=== PATIENT | female | born 1945 | race Caucasian/White ===

== ENCOUNTER 2018-05-12 08:55 | Emergency (ER) | payer OTHER ==
[2018-05-12] MEDS ORDERED: KETOROLAC 30 MG/ML INJ ONE (09:33)
[2018-05-12 09:42] LABS: Absolute Monocytes 0.4 K/uL (0.1-1.3); Absolute Neutrophil 3.5 K/uL (1.8-8.0); Basophils % 0.6 % (0-1.3); Eosinophils % 2.5 % (0-4.4); Hematocrit 41.8 % (36.0-45.0); Lymphocytes % 20.6 % (15.3-44.8); MCH 30.5 pg (27.0-35.0); MCV 89.3 fL (80-100); MPV 8.9 fL (7.6-11.3); Monocytes % 7.4 % (3.3-12.3); RBC Red Blood Cell Count 4.68 M/uL (3.86-4.86)
[2018-05-12 09:57] LABS: Potassium 3.9 mEq/L (3.6-5.0)
[2018-05-12 10:04] LABS: Albumin 4.5 g/dL (3.2-5.5); Bilirubin Direct 0.1 mg/dL (0-0.2); Bilirubin Total 0.9 mg/dL (0.3-1.2); Protein, Total 7.3 g/dL (6.0-8.3)
--- NOTE | 2018-05-12 10:07 | RAD REPORT ---
EXAM DESCRIPTION: CT - Stone Protocol - 05/12/2018 9:37 am CLINICAL HISTORY: Abdominal pain, right flank pain, patient detailed history of right lower quadrant pain, patient provided history of kidney tumors and prior diverticulitis COMPARISON: CT study May 2015 TECHNIQUE: Axial 5 mm thick images were obtained without oral or IV contrast. The [id number] span s the entirety of the system partially obscuring uppermost abdomen and lung bases. Sagittal and co osorio reformatted images were generated and reviewed. All CT scans are performed using dose optimization technique as appropriate and may include automated exposure control or mA/KV adjustment according to patient size.This is this is an outpatient FINDINGS: No acute hydronephrosis present. Fullness of the right renal pelvis is similar to 2015. No ureteral dilatation. Abdomen and pelvic calcifications are present all believed to be outside of the system. No nonobstructing calculi in either kidney. Both kidneys show lobulated contour with area s of cortical thinning noted on the left. Fatty mass lower pole left kidney has not clearly changed f rom 2015. Approximately 10 millimeter area of nodularity adjacent to the lower pole left kidney also without clear change. Fatty mass posterior mid upper left kidney also unchanged from prior imaging. S mall fatty mass lateral right mid kidney shows no change. No new or enlarging renal mass identifiable . Isodense masses and pyelonephritis are not excluded. Partially filled urinary bladder shows no susp icious findings. Uterus and ovaries also without suspicious finding. Imaged portions of the liver, spleen and pancreas show no suspicious findings on non-contrast imaging . Well filled gallbladder shows no acute finding. No biliary tree dilatation. No significant adrenal finding. No acute gastric finding. Gastric jerry are similar to 2015. No acute small bowel finding. There is n o appendicitis. Moderately large stool volume fills but does not dilate the cecum and ascending colon . Moderate stool volume elsewhere in the colon. Diverticulosis is present within the tortuous and red undant sigmoid colon. An acute colon process not seen. No hernia, mass or bulky lymphadenopathy noted. No free air, free fluid or inflammatory stranding. No hematoma or other soft tissue abnormality evident. Advanced disc and bony degenerative changes are present. No acute bone process seen. IMPRESSION: No hydronephrosis, obstructing calculus or acute finding. Both kidneys show lobulated contours and bilateral fatty masses not clearly different from 2015. No a cute bladder finding. Large stool volume fills but does not dilate the cecum and ascending colon. Patient has prominent div erticulosis but no diverticulitis. No acute GI findings seen. No clearly acute finding to explain right-sided back and flank pain symptoms.
[2018-05-12 10:27] LABS: Urine Blood NEGATIVE (NEG); Urine Glucose NEGATIVE (NEG); Urine Protein NEGATIVE (NEG)
--- NOTE | 2018-05-12 10:57 | ER ---
Nurse's Notes [facility] Name: Aniyah Sparks Age: 72 yrs Sex: Female : 1945 Arrival Date: 05/12/2018 Time: 08:58 Bed 5 Private MD: Lior Head H Diagnosis: Abdominal and pelvic pain;Constipation Presentation: 05/12 09:08 Presenting complaint: Patient states: c/o right lower back pain X 10days, has had back iw spasms but then c/o RLQ pain X3-4 days,denies n/v/d, denies urinary symptoms,rates pain 7/10 when lying down,alleviated by standing, pt states she also has tumors on her kidneys that her doctors are monitoring. Transition of care: patient was not received from another setting of care. Onset of symptoms was May 09, 2018. Risk Assessment: Do you want to hurt yourself or someone else? Patient reports no desire to harm self or others. Initial Sepsis Screen: Does the patient meet any 2 criteria? No. Patient's initial sepsis screen is negative. Does the patient have a suspected source of infection? No. Patient's initial sepsis screen is negative. Care prior to arrival: None. 09:08 Method Of Arrival: Ambulatory iw 09:08 Acuity: PERRY 3 iw Historical: - Allergies: 09:18 QUINOLONES; iw - Home Meds: 09:18 levothyroxine 50 mcg tab 1 tab once daily [Active]; iw - PMHx: 09:18 Hypothyroidism; tumors on kidneys; Diverticulitis; iw - PSHx: 09:18 None; iw - Immunization history:: Adult Immunizations up to date. - Social history:: Smoking status: Patient/guardian denies using tobacco. - Ebola Screening: : Patient negative for fever greater than or equal to 101.5 degrees Fahrenheit, and additional compatible Ebola Virus Disease symptoms Patient denies exposure to infectious person Patient denies travel to an Ebola-affected area in the 21 days before illness onset No symptoms or risks identified at this time. Screenin:10 Abuse screen: Denies threats or abuse. Nutritional screening: No deficits noted. aa5 Tuberculosis screening: No symptoms or risk factors identified. Fall Risk None identified. Assessment: 09:06 General: Appears comfortable, Behavior is calm, cooperative. Pain: Complains of pain in aa5 right low back and right lower quadrant Pain does not radiate. Pain currently is 7 out of 10 on a pain scale. Quality of pain is described as Pt states "it feels like a spasm" Pain began back pain 1 1/2 weeks ago and abdominal pain began approximately 4 days ago Is continuous, Aggravated by increased activity, repositioning. Neuro: Level of Consciousness is awake, alert, obeys commands, Oriented to person, place, time, situation. Cardiovascular: Heart tones S1 S2 present Rhythm is regular. Respiratory: Airway is patent Respiratory effort is even, unlabored, Respiratory pattern is regular, symmetrical, Breath sounds are clear bilaterally. GI: Abdomen is flat, non-distended, Bowel sounds present X 4 quads. Abd is soft and non tender X 4 quads. Patient currently denies diarrhea, nausea, vomiting. : Denies burning with urination, urinary frequency. EENT: No signs and/or symptoms were reported regarding the EENT system. Derm: Skin is pink, warm \\T\\ dry. Musculoskeletal: Range of motion: intact in all extremities. 09:44 Reassessment: Pt back from CT scan. aa5 10:00 General: Appears in no apparent distress. comfortable, Behavior is calm, cooperative, hj appropriate for age. Pain: Complains of pain in left low back Pain does not radiate. Pain currently is 4 out of 10 on a pain scale. Quality of pain is described as aching, Pain began Is continuous, Aggravated by increased activity, repositioning. Neuro: Level of Consciousness is awake, alert, obeys commands, Oriented to person, place, time, situation, Appropriate for age. Cardiovascular: Heart tones S1 S2 present. Respiratory: Airway is patent Respiratory effort is even, unlabored, Respiratory pattern is regular, symmetrical, Breath sounds are clear bilaterally. GI: Abdomen is non-distended, Bowel sounds present X 4 quads. Abd is soft and non tender X 4 quads. Patient currently denies diarrhea, nausea, vomiting. : Denies burning with urination, urinary frequency. EENT: No signs and/or symptoms were reported regarding the EENT system. Derm: Skin is intact, Skin is pink, warm \\T\\ dry. Musculoskeletal: Capillary refill < 3 seconds, Range of motion: intact in all extremities. Vital Signs: 09:05 BP 167 / 97; Pulse 74; Resp 16 S; Temp 98.4(O); Pulse Ox 97% on R/A; Weight 57.15 kg; iw Height 5 ft. 6 in. (167.64 cm); Pain 7/10; 10:15 BP 158 / 95; Pulse 75; Resp 18; Pulse Ox 98% on R/A; hj 11:09 BP 148 / 83; Pulse 71; Resp 16 S; Pulse Ox 99% on R/A; Pain 4/10; iw 09:05 Body Mass Index 20.34 (57.15 kg, 167.64 cm) iw ED Course: 08:58 Patient arrived in ED. mr 08:58 Lior Head DO is Private Physician. mr 08:59 Parker Felton MD is Attending Physician. kdr 09:01 Dilma Morgan, RN is Primary Nurse. aa5 09:05 Patient has correct armband on for positive identification. Placed in gown. Bed in low aa5 position. Call light in reach. Side rails up X2. 09:05 Arm band placed on. iw 09:12 Triage completed. iw 09:31 Inserted saline lock: 20 gauge in right antecubital area, using aseptic technique. aa5 ,using aseptic technique. IV inserted by STEPHANIE Mireles. 09:35 Initial lab(s) drawn, by me, sent to lab. jp3 09:[address] via wheelchair. sw 09:37 CT completed. Patient tolerated procedure well. Patient moved back from CT. sw 09:38 CT Stone Protocol In Process Unspecified. EDMS 09:44 No provider procedures requiring assistance completed. aa5 09:57 Matt Langford, LISA is Primary Nurse. hj 10:00 Urine collected: clean catch specimen, clear, kyler colored. jp3 10:55 Lior Head DO is Referral Physician. kdr 11:09 IV discontinued, intact, bleeding controlled, No redness/swelling at site. Pressure iw dressing applied. Administered Medications: 09:33 Drug: TORadol 30 mg Route: IVP; Site: right antecubital; aa5 09:44 Follow up: Response: No adverse reaction hj Outcome: 10:56 Discharge ordered by . kdr 11:09 Discharged to home ambulatory, with family. iw 11:09 Condition: good 11:09 Discharge instructions given to patient, Instructed on discharge instructions, follow up and referral plans. medication usage, Demonstrated understanding of instructions, follow-up care, medications, Prescriptions given X 3. 11:11 Patient left the ED. iw Signatures: Dispatcher [employer] EDMS Parker Felton MD MD kdr Rivera, Maria mr Margarette Cortez, RN RN Dilma Muro RN RN aa5 Destiny Calderon Henry, RN RN hj Pisarski, Jacob jp3 Corrections: (The following items were deleted from the chart) 09:44 09:05 BP 167 / 97; Pulse 74bpm; Resp 16bpm; Spontaneous; Pulse Ox 97% RA; Temp 98.4F iw Oral; aa5
--- NOTE | 2018-05-12 10:57 | EDPHYS ---
Physician Documentation [facility] Name: Aniyah Sparks Age: 72 yrs Sex: Female : 1945 Arrival Date: 05/12/2018 Time: 08:58 Bed 5 Private MD: Lior Head H ED Physician Parker Felton HPI: 05/12 10:21 This 72 yrs old Female presents to ER via Ambulatory with complaints of kdr Abdominal Pain, Back Pain. 10:21 The patient has been c/o an exacerbation of her back pain for the past 10 days and then kdr abdominal pain for the last 3-4 days. She has had chronic back pain but this has been worse. Her abdominal pain is new, intermittent and vague. Onset: The symptoms/episode began/occurred The back pain has been intermittent for some days and the abdominal pain has been the last 3-4 days.. Severity of symptoms: At their worst the symptoms were moderate today, in the emergency department the symptoms have improved mildly. The patient has not experienced similar symptoms in the past. She has had ongoing and intermittent back pain but the abdominal pain is intermittent . The patient has not recently seen a physician. Historical: - Allergies: 09:18 QUINOLONES; iw - Home Meds: 09:18 levothyroxine 50 mcg tab 1 tab once daily [Active]; iw - PMHx: 09:18 Hypothyroidism; tumors on kidneys; Diverticulitis; iw - PSHx: 09:18 None; iw - Immunization history:: Adult Immunizations up to date. - Social history:: Smoking status: Patient/guardian denies using tobacco. - Ebola Screening: : Patient negative for fever greater than or equal to 101.5 degrees Fahrenheit, and additional compatible Ebola Virus Disease symptoms Patient denies exposure to infectious person Patient denies travel to an Ebola-affected area in the 21 days before illness onset No symptoms or risks identified at this time. ROS: 12:10 Constitutional: Negative for fever, chills, and weight loss, Eyes: Negative for injury, kdr pain, redness, and discharge, ENT: Negative for injury, pain, and discharge, Neck: Negative for injury, pain, and swelling, Cardiovascular: Negative for chest pain, palpitations, and edema, Respiratory: Negative for shortness of breath, cough, wheezing, and pleuritic chest pain, : Negative for injury, bleeding, discharge, and swelling, MS/Extremity: Negative for injury and deformity, Skin: Negative for injury, rash, and discoloration, Neuro: Negative for headache, weakness, numbness, tingling, and seizure activity. Psych: Negative for depression, anxiety, suicide ideation, homicidal ideation, and hallucinations, Allergy/Immunology: Negative for hives, rash, and allergies, Endocrine: Negative for neck swelling, polydipsia, polyuria, polyphagia, and marked weight changes, Hematologic/Lymphatic: Negative for swollen nodes, abnormal bleeding, and unusual bruising. 12:10 Abdomen/GI: Positive for abdominal pain, Negative for nausea, vomiting, and diarrhea, abdominal distension, anorexia, black/tarry stool, rectal pain, rectal bleeding. 12:10 Back: Positive for pain at rest, pain with movement, of the right mid back. Exam: 12:10 Constitutional: This is a well developed, well nourished patient who is awake, alert, kdr and in no acute distress. Head/Face: Normocephalic, atraumatic. Eyes: Pupils equal round and reactive to light, extra-ocular motions intact. Lids and lashes normal. Conjunctiva and sclera are non-icteric and not injected. Cornea within normal limits. Periorbital areas with no swelling, redness, or edema. Neck: Trachea midline, no thyromegaly or masses palpated, and no cervical lymphadenopathy. Supple, full range of motion without nuchal rigidity, or vertebral point tenderness. No Meningismus. Chest/axilla: Normal chest wall appearance and motion. Nontender with no deformity. No lesions are appreciated. Cardiovascular: Regular rate and rhythm with a normal S1 and S2. No gallops, murmurs, or rubs. Normal PMI, no JVD. No pulse deficits. Respiratory: Lungs have equal breath sounds bilaterally, clear to auscultation and percussion. No rales, rhonchi or wheezes noted. No increased work of breathing, no retractions or nasal flaring. Skin: Warm, dry with normal turgor. Normal color with no rashes, no lesions, and no evidence of cellulitis. MS/ Extremity: Pulses equal, no cyanosis. Neurovascular intact. Full, normal range of motion. Neuro: Awake and alert, GCS 15, oriented to person, place, time, and situation. Cranial nerves II-XII grossly intact. Motor strength 5/5 in all extremities. Sensory grossly intact. Cerebellar exam normal. Normal gait. Psych: Awake, alert, with orientation to person, place and time. Behavior, mood, and affect are within normal limits. 12:10 Abdomen/GI: Inspection: abdomen appears normal, Bowel sounds: normal, Palpation: soft, mild abdominal tenderness, in the anterior aspect of right lateral abdomen and right lower quadrant. Vital Signs: 09:05 BP 167 / 97; Pulse 74; Resp 16 S; Temp 98.4(O); Pulse Ox 97% on R/A; Weight 57.15 kg; iw Height 5 ft. 6 in. (167.64 cm); Pain 7/10; 10:15 BP 158 / 95; Pulse 75; Resp 18; Pulse Ox 98% on R/A; hj 11:09 BP 148 / 83; Pulse 71; Resp 16 S; Pulse Ox 99% on R/A; Pain 4/10; iw 09:05 Body Mass Index 20.34 (57.15 kg, 167.64 cm) iw MDM: 10:55 Patient medically screened. kdr 12:10 Data reviewed: vital signs, nurses notes, lab test result(s), radiologic studies. kdr Counseling: I had a detailed discussion with the patient and/or guardian regarding: the historical points, exam findings, and any diagnostic results supporting the discharge/admit diagnosis, lab results, radiology results, the need for outpatient follow up. 05/12 09:22 Order name: Basic Metabolic Panel; Complete Time: 10:46 [facility] 05/12 09:22 Order name: CBC with Diff; Complete Time: 10:46 [facility] 05/12 09:22 Order name: Creatinine for Radiology; Complete Time: 10:46 [facility] 05/12 09:22 Order name: Hepatic Function; Complete Time: 10:46 [facility] 05/12 09:22 Order name: Lipase; Complete Time: 10:46 [facility] 05/12 09:22 Order name: IV Saline Lock; Complete Time: 09:33 [facility] 05/12 09:22 Order name: Labs collected and sent; Complete Time: 09:33 [facility] 05/12 09:22 Order name: Urine Dipstick-Ancillary (obtain specimen); Complete Time: 10:10 [facility] 05/12 09:22 Order name: CT Stone Protocol; Complete Time: :46 kdr 05/12 10:11 Order name: Urine Dipstick--Ancillary (enter results); Complete Time: 10:46 bd Administered Medications: 09:33 Drug: TORadol 30 mg Route: IVP; Site: right antecubital; aa5 09:44 Follow up: Response: No adverse reaction Disposition: 05/12/18 10:56 Discharged to Home. Impression: Abdominal and pelvic pain, Constipation. - Condition is Stable. - Discharge Instructions: Constipation, Adult, [id number], Abdominal Pain, Adult, [id number]. - Prescriptions for Cyclobenzaprine 10 mg Oral Tablet - take 1 tablet by ORAL route every 8 hours As needed; 12 tablet. Tramadol 50 mg Oral Tablet - take 1 tablet by ORAL route every 8 hours as needed; 12 tablet. Miralax 17 gram/dose Oral - take 1 packet by ORAL route once daily dilute powder in 8 ounces of water or juice; 20 packet. - Medication Reconciliation Form, Thank You Letter form. - Follow up: Lior Head DO; When: 2 - 3 days; Reason: If symptoms return, Further diagnostic work-up, Recheck today's complaints, Continuance of care, Re-evaluation by your physician. - Problem is an ongoing problem. - Symptoms have improved. Signatures: Dispatcher [employer] EDMS Parker Felton MD MD kdr Margarette Cortez RN RN Dilma Morgan RN RN aa5 Matt Langford RN Corrections: (The following items were deleted from the chart) 11:11 10:56 05/12/2018 10:56 Discharged to Home. Impression: Abdominal and pelvic pain; iw Constipation. Condition is Stable. Forms are Medication Reconciliation Form, Thank You Letter, Antibiotic Education, Prescription Opioid Use. Follow up: Lior Head; When: 2 - 3 days; Reason: If symptoms return, Further diagnostic work-up, Recheck today's complaints, Continuance of care, Re-evaluation by your physician. Problem is an ongoing problem. Symptoms have improved. kdr
== END 2018-05-12 11:11 | disposition home or self-care (01) ==
LOC: ER 08:55
DX: K59.00 Constipation, unspecified (principal); E03.9 Hypothyroidism, unspecified; Z88.5 Allergy status to narcotic agent
CPT/HCPCS: 36415; 74176; 76377; 80048; 80076; 81003; 83690; 85025; 96374; 99284

== ENCOUNTER 2018-07-13 06:50 | Emergency (ER) | payer OTHER ==
[2018-07-13] MEDS ORDERED: MORPHINE 4 MG/ML SYR ONE (07:51)
[2018-07-13] MEDS ORDERED: ONDANSETRON 4 MG/2 ML VIAL ONE (07:52)
[2018-07-13] MEDS ORDERED: NA CHLORIDE 0.9% 500 ML ONE (07:52)
[2018-07-13] MEDS ORDERED: FAMOTIDINE 20 MG/2 ML VIAL IV ONE (07:53)
[2018-07-13 08:05] LABS: Absolute Monocytes 0.5 K/uL (0.1-1.3); Absolute Neutrophil 7.6 K/uL (1.8-8.0); Basophils % 0.4 % (0-1.3); Eosinophils % 0.9 % (0-4.4); Hematocrit 41.6 % (36.0-45.0); Lymphocytes % 10.9 % (15.3-44.8); MCH 31.4 pg (27.0-35.0); MCV 90.9 fL (80-100); MPV 9.1 fL (7.6-11.3); Monocytes % 5.5 % (3.3-12.3); RBC Red Blood Cell Count 4.58 M/uL (3.86-4.86)
[2018-07-13 08:12] LABS: Urine Blood 1+ (NEG); Urine Glucose NEGATIVE (NEG); Urine Protein NEGATIVE (NEG); Urine Specific Gravity >1.030 (1.005-1.030); Urine pH 5.5 (5.0-7.0)
[2018-07-13 08:15] LABS: Albumin 3.7 g/dL (3.4-5.0); Bilirubin Direct 0.1 mg/dL (0-0.2); Bilirubin Total 0.5 mg/dL (0.2-1.0); Protein, Total 7.3 g/dL (6.4-8.2)
[2018-07-13 08:15] LABS: Urine Bacteria 20-50 /HPF (<20); Urine Culture Reflex Order REFLEXED; Urine RBC <5 /HPF (NONE SEEN)
--- NOTE | 2018-07-13 09:49 | RAD REPORT ---
EXAM DESCRIPTION: CT - Abdomen Pelvis W Contrast - 07/13/2018 9:27 am CLINICAL HISTORY: Abdominal pain with vomiting. Epigastric pain COMPARISON: 2013 TECHNIQUE: Computed axial tomography of the abdomen pelvis was obtained. 100 cc Isovue-300 was admin istered intravenously. Oral contrast was not requested which limits evaluation of bowel. All CT scans are performed using dose optimization technique as appropriate and may include automated exposure control or mA/KV adjustment according to patient size. FINDINGS: The liver, spleen, pancreas, and adrenals appear unremarkable. 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 Diverticula stem from the colon without evidence of diverticulitis. A tiny umbilical hernia is present. The rectus abdominis psoas is thickened with stranding in the adjacent fat. IMPRESSION: Thickening of the left rectus abdominis muscle may indicate a myositis or hematoma
--- NOTE | 2018-07-13 12:13 | EKG ---
Test Date: 2018-07-13 Test Time: 08:22:07 Research Interviewer: BEAU MEASUREMENT RESULTS: Intervals: Rate: 66 SD: 186 QRSD: 78 QT: 440 QTc: 461 [place]: P: 28 SD: 186 QRS: 62 T: 64 INTERPRETIVE STATEMENTS: Normal sinus rhythm Normal ECG Compared to ECG 12/06/2003 08:13:00 No significant changes Electronically Signed On 07-13-18 12:11:57 CDT by Gunnar Hinojosa
--- NOTE | 2018-07-13 12:18 | EDPHYS ---
Physician Documentation [facility] Name: Aniyah Sparks Age: 72 yrs Sex: Female : 1945 Arrival Date: 07/13/2018 Time: 06:51 Bed 13 Private MD: Lior Head H ED Physician Parker Felton HPI: 07/13 17:26 This 72 yrs old Female presents to ER via Ambulatory with complaints of kdr Abdominal Pain, Vomiting. 17:26 The patient presents with abdominal pain in the upper abdomen, in the left upper kdr quadrant. Onset: The symptoms/episode began/occurred suddenly, this morning, This pain has bee intermittent for the last two months but has been getting progressively worse. It became especially worse this AT. The symptoms do not radiate. Associated signs and symptoms: Pertinent positives: nausea and vomiting, Pertinent negatives: chest pain, constipation, diarrhea, dysuria, fever, headache, hematuria, nausea, palpitations, shortness of breath, vaginal discharge, vomiting, vomiting blood. The symptoms are described as achy, sharp, waxing/waning. Modifying factors: The symptoms are alleviated by nothing, the symptoms are aggravated by movement. Severity of pain: At its worst the pain was severe incapacitating in the emergency department the pain has improved moderately. The patient has experienced similar episodes in the past, several times, multiple times. The patient has not recently seen a physician. 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 > 10 years ago Pneumococcal vaccine is not up to date, Flu vaccine is up to date. - Social history:: Smoking status: Patient/guardian denies using tobacco. - Ebola Screening: : Patient negative for fever greater than or equal to 101.5 degrees Fahrenheit, and additional compatible Ebola Virus Disease symptoms Patient denies exposure to infectious person Patient denies travel to an Ebola-affected area in the 21 days before illness onset No symptoms or risks identified at this time. ROS: 17:26 Constitutional: Negative for fever, chills, and weight loss, Eyes: Negative for injury, kdr pain, redness, and discharge, ENT: Negative for injury, pain, and discharge, Neck: Negative for injury, pain, and swelling, Cardiovascular: Negative for chest pain, palpitations, and edema, Respiratory: Negative for shortness of breath, cough, wheezing, and pleuritic chest pain, Back: Negative for injury and pain, : Negative for injury, bleeding, discharge, and swelling, MS/Extremity: Negative for injury and deformity, Skin: Negative for injury, rash, and discoloration, Neuro: Negative for headache, weakness, numbness, tingling, and seizure activity. Psych: Negative for depression, anxiety, suicide ideation, homicidal ideation, and hallucinations, Allergy/Immunology: Negative for hives, rash, and allergies, Endocrine: Negative for neck swelling, polydipsia, polyuria, polyphagia, and marked weight changes, Hematologic/Lymphatic: Negative for swollen nodes, abnormal bleeding, and unusual bruising. 17:26 Abdomen/GI: Positive for abdominal pain, Negative for nausea and vomiting, nausea, vomiting, diarrhea, constipation, abdominal cramps, abdominal distension, anorexia, dysphagia, hematemesis, black/tarry stool, rectal pain, rectal bleeding, bowel incontinence, flatulence. Exam: 17:26 Constitutional: This is a well developed, well nourished patient who is awake, alert, kdr and in no acute distress. Head/Face: Normocephalic, atraumatic. Eyes: Pupils equal round and reactive to light, extra-ocular motions intact. Lids and lashes normal. Conjunctiva and sclera are non-icteric and not injected. Cornea within normal limits. Periorbital areas with no swelling, redness, or edema. Neck: Trachea midline, no thyromegaly or masses palpated, and no cervical lymphadenopathy. Supple, full range of motion without nuchal rigidity, or vertebral point tenderness. No Meningismus. Chest/axilla: Normal chest wall appearance and motion. Nontender with no deformity. No lesions are appreciated. Cardiovascular: Regular rate and rhythm with a normal S1 and S2. No gallops, murmurs, or rubs. Normal PMI, no JVD. No pulse deficits. Respiratory: Lungs have equal breath sounds bilaterally, clear to auscultation and percussion. No rales, rhonchi or wheezes noted. No increased work of breathing, no retractions or nasal flaring. Back: No spinal tenderness. No costovertebral tenderness. Full range of motion. Skin: Warm, dry with normal turgor. Normal color with no rashes, no lesions, and no evidence of cellulitis. MS/ Extremity: Pulses equal, no cyanosis. Neurovascular intact. Full, normal range of motion. Neuro: Awake and alert, GCS 15, oriented to person, place, time, and situation. Cranial nerves II-XII grossly intact. Motor strength 5/5 in all extremities. Sensory grossly intact. Cerebellar exam normal. Normal gait. 17:26 Abdomen/GI: Inspection: abdomen appears normal, Bowel sounds: active, diminished, in the left upper quadrant. Vital Signs: 07:01 BP 141 / 95; Pulse 85; Resp 16; Temp 98.8; Pulse Ox 100% on R/A; Weight 57.61 kg; Height 5 ft. 6 in. (167.64 cm); Pain 8/10; 08:00 BP 114 / 70; Pulse 75; Resp 22; Pulse Ox 98% on R/A; Pain 6/10; hb 08:30 BP 152 / 79; Pulse 67; Resp 17; Pulse Ox 98% on R/A; Pain 4/10; hb 09:30 BP 154 / 79; Pulse 67; Resp 18; Pulse Ox 98% on R/A; dh3 10:28 BP 138 / 83; Pulse 73; Resp 15; Pulse Ox 100% on R/A; cc3 11:23 BP 133 / 83; Pulse 74; Resp 19; Pulse Ox 98% on R/A; dh3 12:00 BP 142 / 93; Pulse 67; Resp 15; Pulse Ox 100% on R/A; hb 12:15 BP 136 / 78; Pulse 73; Resp 16; Pulse Ox 100% on R/A; hb 12:30 BP 147 / 80; Pulse 68; Resp 16; Pulse Ox 98% on R/A; Pain 2/10; cc3 07:01 Body Mass Index 20.50 (57.61 kg, 167.64 cm) MDM: 12:17 Patient medically screened. [facility] 17:26 Data reviewed: vital signs, EMS record, diagnostic data from outside facility, old [facility] medical records, lab test result(s), radiologic studies. Counseling: I had a detailed discussion with the patient and/or guardian regarding: the historical points, exam findings, and any diagnostic results supporting the discharge/admit diagnosis, lab results, radiology results, the need for outpatient follow up. Physician consultation:. Physician consultation: Ginette Moon MD regarding consult, patient's condition, and will see patient in ED. 07/13 07:22 Order name: Amylase, Serum; Complete Time: 10: kdr 07/13 07:22 Order name: Basic Metabolic Panel; Complete Time: 10: kdr 07/13 07:22 Order name: CBC with Diff; Complete Time: 10: kdr 07/13 07:22 Order name: Creatinine for Radiology; Complete Time: 10: kdr 07/13 07:22 Order name: Hepatic Function; Complete Time: 10: kdr 07/13 07:22 Order name: Lipase; Complete Time: 10: kdr 07/13 07:22 Order name: Urine Microscopic Only; Complete Time: 10: kdr 07/13 07:22 Order name: Troponin (emerg Dept Use Only); Complete Time: 10: kdr 07/13 08:03 Order name: Urine Dipstick--Ancillary (enter results); Complete Time: 10: bd 07/13 08:17 Order name: Urine Culture EDNM 07/13 09:08 Order name: CT Abd/Pelvis - W/Contrast; Complete Time: 10: kdr 07/13 07:22 Order name: IV Saline Lock; Complete Time: 07:41 kdr 07/13 07:22 Order name: Labs collected and sent; Complete Time: 07:41 kdr 07/13 07:22 Order name: Urine Dipstick-Ancillary (obtain specimen); Complete Time: 08: kdr 07/13 07:22 Order name: EKG Strip; Complete Time: 08:23 kdr 07/13 11:46 Order name: EKG Electrocardiogram; Complete Time: 12:39 EDMS Administered Medications: 07:45 Drug: morphine 4 mg Route: IVP; Site: right antecubital; cc3 08:28 Follow up: Response: No adverse reaction; Pain is decreased cc3 07:45 Drug: NS 0.9% 500 ml Route: IV; Rate: bolus; Site: right antecubital; cc3 07:50 Drug: Zofran 4 mg Route: IVP; Site: right antecubital; cc3 08:28 Follow up: Response: No adverse reaction; Nausea is decreased cc3 08:00 Drug: Pepcid 20 mg Route: IVP; Site: right antecubital; cc3 08:26 Follow up: Response: No adverse reaction; Pain is decreased cc3 Disposition: 07/13/18 12:17 Discharged to Home. Impression: Abdominal and pelvic pain, Myositis - Left abdominal rectus muscle. - Condition is Stable. - Discharge Instructions: Hematoma, [id number], Muscle Pain, Adult, Contusion, [id number], Abdominal Pain, Adult, [id number]. - Prescriptions for Tylenol- Codeine #3 300-30 mg Oral Tablet - take 2 tablets by ORAL route every 6 hours As needed TAke one or two tablets every 4- 6 hours as needed for pain; 15 tablet. - Medication Reconciliation Form, Thank You Letter form. - Follow up: Lior Head DO; When: 2 - 3 days; Reason: If symptoms return, Further diagnostic work-up, Recheck today's complaints, Continuance of care, Re-evaluation by your physician. - Problem is an ongoing problem. - Symptoms have improved. Signatures: Dispatcher [employer] EDYanet Gaxiola RN RN Parker Felton MD MD [facility] Fe Gil [facility] Nathalie Hannah 3 Corrections: (The following items were deleted from the chart) 12:45 12:17 07/13/2018 12:17 Discharged to Home. Impression: Abdominal and pelvic pain; dh3 Myositis - Left abdominal rectus muscle. Condition is Stable. Forms are Medication Reconciliation Form, Thank You Letter, Antibiotic Education, Prescription Opioid Use. Follow up: Lior Head; When: 2 - 3 days; Reason: If symptoms return, Further diagnostic work-up, Recheck today's complaints, Continuance of care, Re-evaluation by your physician. Problem is an ongoing problem. Symptoms have improved. kdr
--- NOTE | 2018-07-13 12:18 | ER ---
Nurse's Notes [facility] Name: Aniyah Sparks Age: 72 yrs Sex: Female : 1945 Arrival Date: 07/13/2018 Time: 06:51 Bed 13 Private MD: Lior Head H Diagnosis: Abdominal and pelvic pain;Myositis-Left abdominal rectus muscle Presentation: 07/13 06:59 Presenting complaint: Patient states: epigastric pain with vomiting since 0500. this ch happened with the same pain on my R side in April, you all said I was constipated. Its very tender now, and hurts much more. I took a tramadol this morning, but then threw it up 5 min later. Transition of care: patient was not received from another setting of care. Onset of symptoms was July 13, 2018 at 05:00. Risk Assessment: Do you want to hurt yourself or someone else? Patient reports no desire to harm self or others. Initial Sepsis Screen: Does the patient meet any 2 criteria? No. Patient's initial sepsis screen is negative. Does the patient have a suspected source of infection? No. Patient's initial sepsis screen is negative. Care prior to arrival: None. 06:59 Method Of Arrival: Ambulatory 06:59 Acuity: PERRY 3 ch Triage Assessment: 07:01 General: Appears in no apparent distress. uncomfortable, Behavior is calm, cooperative, ch appropriate for age. Pain: Complains of pain in epigastric area Pain currently is 8 out of 10 on a pain scale. GI: Reports upper abdominal pain, nausea, vomiting. 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 > 10 years ago Pneumococcal vaccine is not up to date, Flu vaccine is up to date. - Social history:: Smoking status: Patient/guardian denies using tobacco. - Ebola Screening: : Patient negative for fever greater than or equal to 101.5 degrees Fahrenheit, and additional compatible Ebola Virus Disease symptoms Patient denies exposure to infectious person Patient denies travel to an Ebola-affected area in the 21 days before illness onset No symptoms or risks identified at this time. Screenin:30 Abuse screen: Denies threats or abuse. Nutritional screening: No deficits noted. cc3 Tuberculosis screening: No symptoms or risk factors identified. Fall Risk No fall in past 12 months (0 pts). No secondary diagnosis (0 pts). IV access (20 points). Ambulatory Aid- None/Bed Rest/Nurse Assist (0 pts). Gait- Normal/Bed Rest/Wheelchair (0 pts) Mental Status- Oriented to own ability (0 pts). Total Nichols Fall Scale indicates No Risk (0-24 pts). Assessment: 07:30 General: Appears in no apparent distress. comfortable, Behavior is calm, cooperative, cc3 appropriate for age. Pain: Complains of pain in abdomen and epigastric area Pain currently is 6 out of 10 on a pain scale. Neuro: Level of Consciousness is awake, alert, obeys commands, Oriented to person, place, time, situation, Appropriate for age. Cardiovascular: Capillary refill < 3 seconds is brisk in bilateral Chest pain is denied. Respiratory: Airway is patent Respiratory effort is even, unlabored, Respiratory pattern is regular, symmetrical. GI: Bowel sounds present X 4 quads. Abd is soft and non tender Reports epigastric pain, epigastric pain and vomiting once since 0500H this morning. : No signs and/or symptoms were reported regarding the genitourinary system. EENT: No signs and/or symptoms were reported regarding the EENT system. Derm: No signs and/or symptoms reported regarding the dermatologic system. Musculoskeletal: No signs and/or symptoms reported regarding the musculoskeletal system. 08:30 Reassessment: Patient appears in no apparent distress at this time. Patient and/or hb family updated on plan of care and expected duration. Pain level reassessed. Patient is alert, oriented x 3, equal unlabored respirations, skin warm/dry/pink. 09:30 Reassessment: Patient appears in no apparent distress at this time. No changes from hb previously documented assessment. Patient and/or family updated on plan of care and expected duration. Pain level reassessed. Patient is alert, oriented x 3, equal unlabored respirations, skin warm/dry/pink. 09:50 Reassessment: Patient appears in no apparent distress at this time. Patient is alert, cc3 oriented x 3, equal unlabored respirations, skin warm/dry/pink. patient came back from CT scan department and CT abdomen done, awaiting report. Patient states feeling better. 10:28 Reassessment: Patient appears in no apparent distress at this time. Patient and/or cc3 family updated on plan of care and expected duration. Pain level reassessed. Patient is alert, oriented x 3, equal unlabored respirations, skin warm/dry/pink. 11:22 Reassessment: Patient appears in no apparent distress at this time. No changes from hb previously documented assessment. Patient and/or family updated on plan of care and expected duration. Pain level reassessed. Patient is alert, oriented x 3, equal unlabored respirations, skin warm/dry/pink. 12:15 Reassessment: Patient appears in no apparent distress at this time. Patient and/or hb family updated on plan of care and expected duration. Pain level reassessed. Patient is alert, oriented x 3, equal unlabored respirations, skin warm/dry/pink. 12:40 Reassessment: Patient appears in no apparent distress at this time. Patient states cc3 feeling better. Patient states symptoms have improved. Dr. Felton discharged the patient home with prescription given. Patient went out of ER vitally stable and ambulatory with her .. Vital Signs: 07:01 BP 141 / 95; Pulse 85; Resp 16; Temp 98.8; Pulse Ox 100% on R/A; Weight 57.61 kg; ch Height 5 ft. 6 in. (167.64 cm); Pain 8/10; 08:00 BP 114 / 70; Pulse 75; Resp 22; Pulse Ox 98% on R/A; Pain 6/10; hb 08:30 BP 152 / 79; Pulse 67; Resp 17; Pulse Ox 98% on R/A; Pain 4/10; hb 09:30 BP 154 / 79; Pulse 67; Resp 18; Pulse Ox 98% on R/A; dh3 10:28 BP 138 / 83; Pulse 73; Resp 15; Pulse Ox 100% on R/A; cc3 11:23 BP 133 / 83; Pulse 74; Resp 19; Pulse Ox 98% on R/A; dh3 12:00 BP 142 / 93; Pulse 67; Resp 15; Pulse Ox 100% on R/A; hb 12:15 BP 136 / 78; Pulse 73; Resp 16; Pulse Ox 100% on R/A; hb 12:30 BP 147 / 80; Pulse 68; Resp 16; Pulse Ox 98% on R/A; Pain 2/10; cc3 07:01 Body Mass Index 20.50 (57.61 kg, 167.64 cm) ED Course: 06:51 Patient arrived in ED. ds1 06:51 Lior Head DO is Private Physician. ds1 06:55 Parker Felton MD is Attending Physician. kdr 06:59 Yanet Harrison, RN is Primary Nurse. ch 07:00 Triage completed. ch 07:01 Arm band placed on left wrist. Patient placed in an exam room, on a stretcher. ch 07:30 Placed in gown. Bed in low position. Call light in reach. Side rails up X2. Adult w/ cc3 patient. manager monitoring on. Pulse ox on. NIBP on. 07:30 Inserted saline lock: 20 gauge in right antecubital area, using aseptic technique. cc3 Blood collected. 08:25 EKG done, by warehousing technician. reviewed by Parker Felton MD. at1 08:52 Mar Cummings, RN is Primary Nurse. hb 09:20 CT completed. Patient tolerated procedure well. Patient moved to CT via wheelchair. sj Patient moved back from CT. 09:27 CT Abd/Pelvis - W/Contrast In Process Unspecified. EDMS 12:16 Lior Head DO is Referral Physician. kdr 12:31 EKG done, by warehousing technician. reviewed by Parker Felton MD. tc 12:40 No provider procedures requiring assistance completed. IV discontinued, intact, cc3 bleeding controlled, No redness/swelling at site. Pressure dressing applied. Administered Medications: 07:45 Drug: morphine 4 mg Route: IVP; Site: right antecubital; cc3 08:28 Follow up: Response: No adverse reaction; Pain is decreased cc3 07:45 Drug: NS 0.9% 500 ml Route: IV; Rate: bolus; Site: right antecubital; cc3 07:50 Drug: Zofran 4 mg Route: IVP; Site: right antecubital; cc3 08:28 Follow up: Response: No adverse reaction; Nausea is decreased cc3 08:00 Drug: Pepcid 20 mg Route: IVP; Site: right antecubital; cc3 08:26 Follow up: Response: No adverse reaction; Pain is decreased cc3 Outcome: 12:17 Discharge ordered by . kdr 12:40 Discharged to home ambulatory, with family. cc3 12:40 Condition: stable 12:40 Discharge instructions given to patient, family, Instructed on discharge instructions, follow up and referral plans. medication usage, Demonstrated understanding of instructions, follow-up care, medications, Prescriptions given X 1. 12:45 Patient left the ED. 3 Addendum: 07/16/2018 18:52 Addendum: Culture Results: Positive urine culture. Bacteria is resistant to, has i w intermediate sensitivity, or is not tested against prescribed antibiotics. Report given to DEVEN for further evaluation and then to religious education director for follow up with patient. Phone call Attempt #1 pt did not answer, unable to leave voice mail. Signatures: Dispatcher [employer] EDMS Yanet Harrison, Parker Edmond RN, ch, MD MD kdr Jones, Susan sj Sanford, Demi ds1 Margarette Cortez RN RN iw Elsa Cormier, pull over machine operator EKG Tat1 Kera Valdez, pull over machine operator EKG Ttc Mar Cummings RN RN hb Herrera, Deanna [facility] Nathalie Hannah 3 Corrections: (The following items were deleted from the chart) 08 08:18 07:30 GI: Reports epigastric pain, epigastric pain and vomiting once since 0500H this 3 morning. cc3 08:47 08:00 BP 114 / 70; Pulse 75bpm; Resp 22bpm; Pulse Ox 98% RA; cc3 hb
--- NOTE | 2018-07-13 15:31 | P.CNS ---
Date of Consult: 07/13/18 HPI: 72-year-old female with significant past medical history presented to the ED complaining of having some abdominal pain that is in the epigastric area that started this morning. Patient stated that she woke up from her sleep after having some excruciating abdominal pain that woke her up from her sleep this morning. Patient stated that she was seen here in the hospital for similar symptoms in the past however was discharged home with a diagnosis of chronic constipation. Patient stated that she did not have any other associated symptoms with it denies having any nausea vomiting diarrhea or any other fever or chills. Patient stated that she has been moving along the recently and has been getting some furniture here in their and might have hurt herself in the stomach as well. Patient seen in the ER lab work was done which was within normal limits. Imaging was done with abdominal CT which was consistent with rectus muscle thickening concerning for myositis versus hematoma. Medicine team was consulted to admit the patient. Patient's hemoglobin was stable and patient's abdominal pain was gone by the time I saw her in the ER. Past medical history, family history, home medication, past surgical history, social history were all reviewed personally by me and was noncontributory at this time. Physical Exam: Vitals: Stable General alert and oriented x3 in no acute distress noted. Cardiovascular regular rate and rhythm no murmurs were heard Lungs clear to auscultate bilaterally no wheezing rales or rhonchi Abdomen nondistended 9 tender positive bowel sounds. No bruising or erythema noted Extremities palpable pulse in all 4 extremity. Negative for edema Assessment and plan 1. Abdominal pain: Most likely secondary to trauma related mild hematoma inflammatory changes in the rectus muscle. Patient was educated on the RICE therapy and was asked to apply ice to the affected area this. Patient's hemoglobin is stable while here in the hospital along with vital signs which are stable as well as patient can be discharged home safely with follow up appointment with her primary care provider. Patient was extensively educated on returning back to the ER if her pain gets worse if she starts having nausea vomiting diarrhea or any other associated symptoms. Patient's family member at bedside demonstrated understanding and patient was agreeable with the plan and thus was discharged home under stable condition by the ER physician.
--- NOTE | 2018-07-13 17:01 | EKG ---
Test Date: 2018-07-13 Test Time: 12:22:32 Application Support Intern: ISAIAH MEASUREMENT RESULTS: Intervals: Rate: 64 SC: 202 QRSD: 78 QT: 432 QTc: 445 [place]: P: 51 SC: 202 QRS: 60 T: 68 INTERPRETIVE STATEMENTS: Normal sinus rhythm Normal ECG Compared to ECG 07/13/2018 08:22:07 No significant changes Electronically Signed On 07-13-18 17:01:00 CDT by Gunnar Hinojosa
== END 2018-07-13 12:45 | disposition home or self-care (01) ==
LOC: ER 06:50
DX: M60.9 Myositis, unspecified (principal); E03.9 Hypothyroidism, unspecified; Z88.5 Allergy status to narcotic agent
CPT/HCPCS: 36415; 74177; 80048; 80076; 82150; 83690; 84484; 85025; 87086; 87088; 93005 ×2; J2405; Q9967; 81003; 81015; 87077; 87186; 96374; 96375; 99285